=== PATIENT | female | born 1950 | race Caucasian/White ===

== ENCOUNTER → 2019-08-05 11:08 | Outpatient (BNVA) | payer MEDICARE, SELFPAY | PROVIDERS: Family Provider Internal Medicine; PCP Internal Medicine; Referring Provider Family Medicine; Visit Provider Nurse Practitioner Family | DX: N39.0 Urinary tract infection, site not specified (principal); R31.29 Other microscopic hematuria | CPT/HCPCS: 81003 ==

== ENCOUNTER 2019-08-06 12:03 | Emergency (ER) | payer MEDICARE, SELFPAY ==
[2019-08-06 12:47] VITALS: BP 121/76; PULSE 85; RESP 17; TEMP 36.8; O2SAT 99; BMI 18.0
[2019-08-06 14:07] LABS: Hematocrit 42.2 % (37.0-47.0); Hemoglobin 13.4 g/dL (11.5-15.3); Mean Corpuscular HGB Conc 31.8 g/dL (30.0-36.0); Mean Corpuscular Hemoglobin 29.8 pg (28.0-34.0); Mean Platelet Volume 9.8 fL (7.4-10.4); Platelet Count 223 10^3/cmm (130-400); Red Blood Count 4.49 10^6/uL (4.1-5.3); White Blood Count 6.8 10^3/uL (4.0-10.0)
[2019-08-06 14:24] LABS: Platelet Estimate Normal (Normal); Total Cells Counted 100 (0-100)
[2019-08-06 14:27] LABS: Absolute Segmented Neutrophil 4.1 10/cmm (1.6-7.1); Band Neutrophils Absolute 0.1 10^3/cmm (0.0-1.2); Lymphocytes 34 %; Monocytes Absolute 0.3 10^3/cmm (0.1-0.6); Segmented Neutrophils 61 %
[2019-08-06 14:33] LABS: Anion Gap 16.9 (5-19); Blood Urea Nitrogen 16 mg/dL (8-23); Calcium 9.5 mg/dL (8.5-10.5); Carbon Dioxide 26 mmol/L (22-29); Chloride 103 mmol/L (98-107); Glomerular Filtration Rate 71.8 mL/min (90-130); Glucose 98 mg/dL (65-115); Osmolality Calculated 290 mOsm/kg (285-295); Potassium 3.9 mmol/L (3.5-5.1); Sodium 142 mmol/L (136-145)
[2019-08-06 15:07] LABS: Add Urine Microscopic? YES; Bilirubin Urine Neg (NEGATIVE); Blood Urine Trace (Negative); Glucose Urine UA Norm (Normal); Ketones Urine Negative (Negative); Leukocyte Esterase Urine Negative (Negative); Nitrate Urine Negative (Negative); Protein Urine Neg (Negative); Urine Appearance Clear (CLEAR); Urine Color Yellow (Yellow); Urobilinogen Urine Norm (Negative); pH Urine 5 (5-7)
[2019-08-06 15:17] VITALS: BP 125/75; PULSE 75; RESP 16; O2SAT 98
--- NOTE | 2019-08-06 15:49 | PC.NURSE ---
Patient states that she was seen yesterday for same symptoms at urgent care, patient states that she called her family doctor today and they advised her to come here for imaging for possible kidney stone.
--- NOTE | 2019-08-06 16:10 | ED_ITS ---
Entered by Irma Estrada, acting as scribe for Tish Murphy MD Aug 06, 2019 12:03 HPI - Back Pain/Injury General: Chief Complaint: Back Pain/Injury Stated Complaint: poss kidney stones Time Seen by Provider: 08/06/19 16:08 Source: patient and RN notes reviewed Mode of arrival: ambulatory Limitations: no limitations History of Present Illness: HPI Narrative: 68 yo female presents to ED with complaints of back pain that began about a week ago. She believes she has a kidney stone since she was seen at the urgent care yesterday and told she had blood in her urine and likely had a kidney stone. She has been nauseated. She states she has had no blood in her urine. The patient went to [facility] yesterday, thinking she had a bladder infection. She has bilateral flank pain, more pain on the L side vs the R side. The patient states she has not injured herself. She has taken no antibiotics. She has had 4 surgeries on her back in the past - the last was approximately 14 years ago. MD elicited complaint: back pain Pertinent past history: prior back pain and back surgery (4 times, most recent i n 2005) Onset (ago): week(s) (1) Timing: progressively worsening Severity: moderate Similar Symptoms Previously: Yes Quality: sharp and stabbing Location: left flank and right flank Radiation: none Exacerbating factors: movement Relieving factors: immobilization Context: other (no injury) Associated symptoms: Reports nausea; Deny chills or fever(s) Treatments prior to arrival: other (none) Work related injury: No Review of Systems General: Reports: 10 or more systems reviewed and unremarkable except in HPI and below Const: Denies: fever or chills Eyes: Denies: change in vision ENMT: Denies: throat pain Card: Denies: chest pain Resp: Denies: shortness of breath GI: Reports: nausea : Denies: difficulty urinating Musc: Denies: muscle weakness Skin/Breast: Denies: rash Neuro: Denies: headache Psych: Denies: hopelessness or suicidal ideation Endo: Denies: excessive urination Omar/Lymph: Denies: easy bruising or easy bleeding All/Imm: Denies: hives PFSH ED PFSH: Social History Smoking and tobacco status: former smoker Physical Exam Const: COMMON NORMALS: no apparent distress, oriented x3, alert and well nourished HENMT: COMMON NORMALS: normocephalic and external nose normal HEAD & SCALP: normocephalic NOSE: external nose normal MOUTH: no trismus Eye: COMMON NORMALS: EOMs intact bilaterally and conjunctivae normal CONJUNCTIVA: Yes conjunctivae normal Neck/C-Spine: COMMON NORMALS: full ROM and supple CERVICAL SPINE: Yes cervical ROM normal Resp: COMMON NORMALS: normal respiratory effort, no retractions, no use of accessory muscles and clear to auscultation bilaterally EFFORT & INSPECTION: Yes able to speak in complete sentences AUSCULTATION: clear to auscultation bilaterally Cardio: COMMON NORMALS: regular rate and regular rhythm RATE: regular rate RHYTHM: regular rhythm GI: COMMON NORMALS: normal to inspection, nondistended, normoactive bowel sounds, soft to palpation, non-tender and no masses INSPECTION: Yes normal to inspection AUSCULTATION: Yes normoactive bowel sounds PALPATION: Yes soft, No guarding and No rigid Back/Pelvis: OTHER: Normal range of motion. No bony tenderness. Negative straight leg raise. Normal muscle strength lower extremities Extremity: GENERAL: Yes normal exam except as noted Neuro: COMMON NORMALS: oriented x3 and CN's II-XII intact bilaterally SENSORIUM/ORIENTATION: Yes alert SPEECH: speech normal Psych: COMMON NORMALS: mental status grossly normal Skin: COMMON NORMALS: no rashes or lesions noted GENERAL SKIN EXAM: no rashes or lesions noted Course Vital Signs: Vital signs: Vital Signs Temperature 98.3 F 08/06/19 12:47 Pulse Rate 75 08/06/19 15:17 Respiratory Rate 16 08/06/19 15:17 Blood Pressure 125/75 08/06/19 15:17 Pulse Oximetry 98 08/06/19 15:17 MDM - Back Pain/Injury MDM Narrative: Medical decision making narrative: Updated patient on her test results and told her about her mild colitis. We will start her on antibiotics. She is in no distress and is thankful that we found the reason for her not feeling well. Encouraged to return to the ER if worse. Lab Data: Attestation: I reviewed the patient's lab results. Labs: Lab Results 08/06/19 08/06/19 08/06/19 Range/Units 13:52 13:52 14:25 WBC 6.8 (4.0-10.0) 10^3/ uL RBC 4.49 (4.1-5.3) 10^6/u L Hgb 13.4 (11.5-15.3) g/dL Hct 42.2 (37.0-47.0) % MCV 94.0 (81-99) fL MCH 29.8 (28.0-34.0) pg MCHC 31.8 (30.0-36.0) g/dL RDW 13.0 (12.1-15.1) % Plt Count 223 (130-400) 10^3/c mm MPV 9.8 (7.4-10.4) fL Total Counted 100 (0-100) Segmented Neutroph ils 61 % Band Neutrophils 1.0 % Lymphocytes (Manua l) 34 % Monocytes (Manual) 4.0 % Absolute Monocytes 0.3 (0.1-0.6) 10^3/c mm Platelet Estimate Normal (Normal) Sodium 142 (136-145) mmol/L Potassium 3.9 (3.5-5.1) mmol/L Chloride 103 (98-107) mmol/L Carbon Dioxide 26 (22-29) mmol/L Anion Gap 16.9 (5-19) BUN 16 (8-23) mg/dL Creatinine 0.8 (0.5-0.9) mg/dL GFR Calculation 71.8 L (90-130) mL/min Glucose 98 (65-115) mg/dL Calculated Osmolal ity 290 (285-295) mOsm/k g Calcium 9.5 (8.5-10.5) mg/dL Urine Color Yellow (Yellow) Urine Appearance Clear (CLEAR) Urine pH 5 (5-7) Ur Specific Gravit y 1.020 (1.005-1.030) Urine Protein Neg (Negative) Urine Glucose (UA) Norm (Normal) Urine Ketones Negative (Negative) Urine Blood Trace H (Negative) Urine Nitrate Negative (Negative) Urine Bilirubin Neg (NEGATIVE) Urine Urobilinogen Norm (Negative) mg/dL Ur Leukocyte May ase Negative (Negative) Urine RBC 5-10 H (0-2) /hpf Urine WBC None (0-5) /hpf Ur Squamous Epith Cells None (0-5) Urine Bacteria None (NONE) Imaging Data^: CT Abd/Pel: Radiologist's impression: [address] [address] [address] Scan Report Signed Patient: Alexandre Arriaza #: [id number] : 3Acct#:[id number] Age/Sex: 68 / FADM Date: 08/06/19 Loc: ERRoom/Bed: Attending Dr: Ordering Provider/Ordering MD: Tish Murphy MD Date of Service: 08/06/19 Procedure(s): CT kidney stone 12131 Accession Number(s): [id number] Report Number: [id number] PROCEDURE INFORMATION: Exam: CT Abdomen And Pelvis Without Contrast Exam date and time: 08/06/2019 4:49 PM Age: 68 years old Clinical indication: Abdominal pain; Prior surgery; Surgery date: 6+ months; Surgery type: Spine/4 ectopic pregnancies; Patient HX: Left flank pain x1 wk, no known recent trauma; Additional info: L flank pain TECHNIQUE: Imaging protocol: Computed tomography of the abdomen and pelvis without contrast. Total DLP: 548.84 mGy-cm Radiation optimization: All CT scans at this facility use at least one of these dose optimization techniques: automated exposure control; mA and/or kV adjustment per patient size (includes targeted exams where dose is matched to clinical indication); or iterative reconstruction. COMPARISON: No relevant prior studies available. FINDINGS: Liver: There is a 1.8 cm indeterminate hypodensity in the liver just below the diaphragm image 18. The Hounsfield unit measurement within this abnormality is 49 and this is not a fluid density cyst on this study. There is a 1 cm fluid density cyst in the caudate lobe of the liver image 41. No duct dilatation. Gallbladder and bile ducts: Normal. No calcified stones. No ductal dilation. Pancreas: Normal. No ductal dilation. Spleen: Normal. No splenomegaly. Adrenals: Normal. No mass. Kidneys and ureters: There is no evidence of hydronephrosis. There is no evidence of renal calcifications. There is a 3.5 cm simple cyst in the left kidney. Stomach and bowel: Moderate diverticulosis is present in the distal colon. There is no evidence of colitis/diverticulitis. There is no evidence of intestinal perforation or obstruction. There is mild wall thickening in the descending and sigmoid colon compatible with mild colitis. Appendix: No evidence of appendicitis. Intraperitoneal space: Unremarkable. No free air. No significant fluid collection. Vasculature: There are numerous benign phleboliths in the pelvis. Lymph nodes: Unremarkable.No enlarged lymph nodes. Bladder: There is nonspecific bladder wall thickening. This may be related to incomplete distention. Reproductive: Unremarkable as visualized. Bones/joints: There is dextroscoliosis. Old right pubic rami fracture deformities are noted. Old anterior wedging fracture deformity of L1 is noted with prominent bony sclerosis. There are moderate to severe degenerative changes in the spine. No acute bony abnormality. Soft tissues: There is a fat-containing umbilical hernia. CT/CT kidney stone 53353 IMPRESSION: 1. There is a 3.5 cm simple cyst in the left kidney. No follow-up is necessary. 2. There is a 1.8 cm indeterminate hypodensity in the liver just below the diaphragm image 18. Recommend further evaluation with liver MRI. 3. There is mild wall thickening in the descending and sigmoid colon compatible with mild colitis. 4. No obstructing calculi or hydronephrosis. COMMENTS: Consistent with the [employer]'s Incidental Findings Committee white paper (J Am Casandra Radiol 2018): Any incidental cystic renal lesion classified in this report as too small to characterize or simple appearing is likely a benign cyst. No follow-up imaging is recommended for these lesions per consensus recommendations based on imaging criteria. Radiation Dose CTDIVOL = (mGy): DLP = 548.84 (mGy-cm) Dictated By:Sherry Garza Signed By:Kymberly Garza Date/Time:08/06/19 3691 DD/ Discharge Plan Discharge Patient Disposition: Home, Self-Care Clinical Impression: Colitis Back pain Qualifiers: Back pain location: low back pain Chronicity: acute Back pain laterality: left Sciatica presence: without sciatica Qualified Code(s): M54.5 - Low back pain Condition: Stable Prescriptions: New Cipro 500 mg tablet 500 mg PO BID Qty: 10 RF: 0 Flagyl 500 mg tablet 500 mg PO BID Qty: 10 RF: 0 Zofran 4 mg tablet 4 mg PO Q8H 3 Days Qty: 9 RF: 0 No Action gabapentin 900 mg PO QID RF: 0 tizanidine 6 mg PO QID RF: 0 Multiple Vitamins Tablet 1 tab PO DAILY RF: 0 Tylenol 325 mg Tablet 325 mg PO QID PRN (Reason: Pain) RF: 0 chromium-brindal alejandre 200-500 mcg-mg Tablet 1 tab PO TID RF: 0 vitamin B wiwbem-J-GO-zinc cit 0.8-15 mg Tablet 1 tab PO DAILY RF: 0 Referrals: Trisha Che FNP [Primary Care Provider] - Patient Instructions: Infectious Colitis (ED) Activity Restrictions/Additional Instructions: Take your antibiotics as prescribed. Return to the ER if you feel that you are worse in any way or have any emergent symptoms you think need to be evaluated we are happy to see you. Coding Level of Care Code ED Pizza Maker for Chg Fwd Exam Comprehensive The documentation recorded by the Natalie foote Valerie R, accurately reflects the service I personally performed and the decisions made by me, Tish Murphy MD Aug 06, 2019 12:03
--- NOTE | 2019-08-06 16:43 | CTR_ITS ---
PROCEDURE INFORMATION: Exam: CT Abdomen And Pelvis Without Contrast Exam date and time: 08/06/2019 4:49 PM Age: 68 years old Clinical indication: Abdominal pain; Prior surgery; Surgery date: 6+ months; Surgery type: Spine/4 ectopic pregnancies; Patient HX: Left flank pain x1 wk, no known recent trauma; Additional info: L flank pain TECHNIQUE: Imaging protocol: Computed tomography of the abdomen and pelvis without contrast. Total DLP: 548.84 mGy-cm Radiation optimization: All CT scans at this facility use at least one of these dose optimization techniques: automated exposure control; mA and/or kV adjustment per patient size (includes targeted exams where dose is matched to clinical indication); or iterative reconstruction. COMPARISON: No relevant prior studies available. FINDINGS: Liver: There is a 1.8 cm indeterminate hypodensity in the liver just below the diaphragm image 18. The Hounsfield unit measurement within this abnormality is 49 and this is not a fluid density cyst on this study. There is a 1 cm fluid density cyst in the caudate lobe of the liver image 41. No duct dilatation. Gallbladder and bile ducts: Normal. No calcified stones. No ductal dilation. Pancreas: Normal. No ductal dilation. Spleen: Normal. No splenomegaly. Adrenals: Normal. No mass. Kidneys and ureters: There is no evidence of hydronephrosis. There is no evidence of renal calcifications. There is a 3.5 cm simple cyst in the left kidney. Stomach and bowel: Moderate diverticulosis is present in the distal colon. There is no evidence of colitis/diverticulitis. There is no evidence of intestinal perforation or obstruction. There is mild wall thickening in the descending and sigmoid colon compatible with mild colitis. Appendix: No evidence of appendicitis. Intraperitoneal space: Unremarkable. No free air. No significant fluid collection. Vasculature: There are numerous benign phleboliths in the pelvis. Lymph nodes: Unremarkable.No enlarged lymph nodes. Bladder: There is nonspecific bladder wall thickening. This may be related to incomplete distention. Reproductive: Unremarkable as visualized. Bones/joints: There is dextroscoliosis. Old right pubic rami fracture deformities are noted. Old anterior wedging fracture deformity of L1 is noted with prominent bony sclerosis. There are moderate to severe degenerative changes in the spine. No acute bony abnormality. Soft tissues: There is a fat-containing umbilical hernia. CT/CT kidney stone [id number] IMPRESSION: 1. There is a 3.5 cm simple cyst in the left kidney. No follow-up is necessary. 2. There is a 1.8 cm indeterminate hypodensity in the liver just below the diaphragm image 18. Recommend further evaluation with liver MRI. 3. There is mild wall thickening in the descending and sigmoid colon compatible with mild colitis. 4. No obstructing calculi or hydronephrosis. COMMENTS: Consistent with the [employer]'s Incidental Findings Committee white paper (J Am Casandra Radiol 2018): Any incidental cystic renal lesion classified in this report as too small to characterize or simple appearing is likely a benign cyst. No follow-up imaging is recommended for these lesions per consensus recommendations based on imaging criteria. Radiation Dose CTDIVOL = (mGy): DLP = 548.84 (mGy-cm)
[2019-08-06] MEDS: ondansetron 4 MG Tablet PO (18:01)
[2019-08-06 18:14] VITALS: BP 123/71; PULSE 76; RESP 18; O2SAT 98
== END 2019-08-06 18:16 | disposition home or self-care (01) ==
PROVIDERS: Emergency Provider Emergency Medicine; PCP Nurse Practitioner
DX: K52.9 Noninfective gastroenteritis and colitis, unspecified (principal); Z87.891 Personal history of nicotine dependence
CPT/HCPCS: 36415; 74176; 80048; 81001; 85007; 85027; 99281; 99283; Q0162

== ENCOUNTER → 2020-03-05 18:23 | Outpatient (BNVA) | payer OTHER, SELFPAY | PROVIDERS: Family Provider Internal Medicine; PCP Nurse Practitioner; Visit Provider Nurse Practitioner Family | DX: Z20.828 Contact with and (suspected) exposure to other viral communicable diseases (principal) | CPT/HCPCS: 87635 ==

== ENCOUNTER 2020-04-28 08:41 | Outpatient (CLI) | payer MEDICARE, SELFPAY ==
--- NOTE | 2020-04-28 08:55 | CT_ITS ---
WS: [id number] CT NECK TECHNIQUE: Contrast-enhanced CT of the neck with coronal and sagittal reformatted images. CLINICAL INFORMATION: LOCALIZED SWELLING MASS/LUMP COMPARISON: None. DLP: 1385.[address] scans at [facility] use at least one of these dose optimization techniques: automat ed exposure control; mA and/or kV adjustment per patient size (includes targeted exams where dose is matched to clinical indication); or iterative reconstruction. FINDINGS: Marker over the left neck in the area of palpable concern. Parotid glands are normal in appearance. N ormal submandibular glands. Palpable marker overlying the left submandibular gland. No underlying pat hologic mass or lesion. No underlying lymphadenopathy. Normal subcutaneous soft tissues in this locat ion. Lung apices appear normal. Normal parapharyngeal fat. Tongue base is normal in appearance. No cervica l lymphadenopathy. Mastoid air cells are well aerated. Paranasal sinuses are well aerated. Lung apice s are well aerated. Surgical clips right lower neck. Moderate to advanced spondylitic changes cervical spine with disc osteophyte complexes worse at C4-C5 C5-C6 and C6-C7. Paranasal sinuses and mastoid air cells are well aerated. Partially visualized intr acranial contents are normal. No evidence of supraglottic or glottic mass. Normal vallecula and pirif orm sinuses. Subglottic airway is patent. Incidental aberrant right subclavian artery. CT/CT neck w con* [id number] IMPRESSION: 1. No evidence of supraglottic or glottic mass. 2. Palpable marker overlying the left upper neck. No underlying mass or lesion . Normal underlying submandibular gland. 3. Salivary glands are normal in appearance. 4. No cervical lymphadenopathy. 5. Thyroid gland is normal. 6. Paranasal sinuses and mastoid air cells are well aerated. 7. Incidental aberrant right subclavian artery.
[2020-04-28 09:18] LABS: Blood Urea Nitrogen 10 mg/dL (8-23)
[2020-04-28 09:19] LABS: Glomerular Filtration Rate 71.5 mL/min (90-130)
[2020-04-28] MEDS: iohexol 300 mg/mL 100 mL Btl IV (09:31)
== END 2020-04-28 08:42 | disposition home or self-care (01) ==
PROVIDERS: PCP Internal Medicine; Visit Provider Specialist
DX: R22.1 Localized swelling, mass and lump, neck (principal); Q27.8 Other specified congenital malformations of peripheral vascular system
CPT/HCPCS: 70491; 82565; 84520; Q9967

== ENCOUNTER → 2020-10-07 12:59 | Outpatient (BNVA) | payer MEDICARE, SELFPAY | PROVIDERS: PCP Internal Medicine; Visit Provider Nurse Practitioner Family | DX: N39.0 Urinary tract infection, site not specified (principal) | CPT/HCPCS: 81000 ==

== ENCOUNTER → 2020-12-21 09:32 | Outpatient (BNVA) | payer MEDICARE, SELFPAY | PROVIDERS: PCP Internal Medicine; Visit Provider Internal Medicine | DX: R30.0 Dysuria (principal); M54.9 Dorsalgia, unspecified | CPT/HCPCS: 81003 ==

== ENCOUNTER → 2021-12-14 00:01 | Outpatient (BNVA) | payer MEDICARE, SELFPAY | PROVIDERS: PCP Internal Medicine; Visit Provider Internal Medicine | DX: Z20.822 Contact with and (suspected) exposure to COVID-19 (principal) | CPT/HCPCS: 87635 ==

== ENCOUNTER 2021-12-18 08:38 | Emergency (ER) | payer MEDICARE, SELFPAY ==
[2021-12-18 09:43] VITALS: BP 201/104; PULSE 107; RESP 18; TEMP 37.4; O2SAT 95; BMI 18.3
--- NOTE | 2021-12-18 09:47 | XRR_ITS ---
PROCEDURE INFORMATION: Exam: XR Chest Exam date and time: 12/18/2021 11:06 AM Age: 71 years old Clinical indication: Cough TECHNIQUE: Imaging protocol: Radiologic exam of the chest. Views: 1 view. COMPARISON: CR Chest 1 [place] [id number] 11/11/2018 11:09 AM FINDINGS: Tubes, catheters and devices: Surgical clips overlie the superior right hemithorax. Lungs: COPD morphology of the chest. No large focal consolidation. Pleural spaces: Unremarkable. No pleural effusion. No pneumothorax. Heart/Mediastinum: Unremarkable. No cardiomegaly. Vasculature: There is calcified plaque in the aortic knob. Bones/joints: There are thoracolumbar scoliotic curvatures.There are degenerative changes in the thoracic spine and across the acromioclavicular joints. XR/XR chest 1V portable [id number] IMPRESSION: COPD morphology of the chest.
--- NOTE | 2021-12-18 09:56 | ED_ITS ---
HPI - URI/Sore Throat General: Chief Complaint: Upper Respiratory Infection Stated Complaint: cough, runny nose Time Seen by Provider: 12/18/21 08:40 History of Present Illness: Ms. Arriaza is a 71-year-old lady with remote history of tobaccoism who presents to the emergency department due to cough and shortness of breath. She reports symptom onset approximately a week and a half ago. Initially it was mainly congestion and upper respiratory symptoms for the has now become more in her chest. She has mildly productive cough and moderate shortness of breath with exertion. Overall course of symptoms has worsened. No other specific changes in health, exacerbating, or alleviating factors identified. Onset (ago): day(s) Consistency: progressively worsening Severity: moderate Description of mucous: green Able to tolerate fluids by mouth: Yes Exacerbating factors: exertion and deep breaths Relieving factors: nothing Associated symptoms: Reports cough, myalgias and short of breath Review of Systems General: Reports: 10 or more systems reviewed and unremarkable except in HPI and below PFSH ED PFSH: Medical History Allergic rhinitis due to allergen Congestion of nasal sinus Post-traumatic stress disorder, chronic Social History Smoking and tobacco status: former smoker Second hand smoke exposure: Yes Smoking risk assessment/counseling performed?: No Alcohol intake: never Desire information about alcohol rehabilitation?: No Counseling given: No Desire information about substance/drug rehabilitation?: No Counseling given: No Adopted: No Caregiver/support person: No Lives independently: Yes Household members: spouse Housing: House Marital status: Number of children: 1 Number of grandchildren: 7 Highest education level completed: Master's Degree service: No Current occupational status: retired Current occupational exposures/hazards: No Pets and animals: Yes History of recent travel: No Current gender identity: Female Special angi needs: No Agree to transfusion: Yes Female Reproductive History: Date of last menstrual period: 06/11/97 Physical Exam Const: COMMON NORMALS: alert GENERAL APPEARANCE: cooperative, well develo ped and ill appearing (mildly) HENMT: COMMON NORMALS: normocephalic and atraumatic HEAD & SCALP: normocephalic and atraumatic THROAT: posterior oropharynx normal Eye: COMMON NORMALS: conjunctivae normal CONJUNCTIVA: Yes conjunctivae normal SCLERA: sclerae normal Neck/C-Spine: COMMON NORMALS: supple GENERAL: Yes trachea midline Resp: EFFORT & INSPECTION: Yes able to speak in complete sentences AUSCULTATION: rhonchi lower bilaterally Cardio: COMMON NORMALS: regular rhythm RATE: tachycardic RHYTHM: regular rhythm GI: COMMON NORMALS: Soft to palpation PALPATION: Yes Soft to palpation and No Tenderness to palpation present (GI) PERCUSSION: normal to percussion Extremity: GENERAL: Yes normal exam except as noted and No edema Neuro: COMMON NORMALS: moves all extremities SENSORIUM/ORIENTATION: Yes alert and No Orientation impaired Psych: COMMON NORMALS: mental status grossly normal and Normal thought process present THOUGHT PROCESS: Normal thought process present Course ED course: - Patient was seen and evaluated by me at bedside - Patient placed on cardiac monitors, IV access obtained - Initial evaluation notable for exam as above - Labs and xrays personally interpreted by me. EKG notable for sinus rhythm, no STEMI. -Fluids given - Labs notable for no leukocytosis, normal hemoglobin. Metabolic panel without significant derangement. Flu negative, patient tested for COVID and was negative on 12/14. - Imaging notable for likely COPD without lobar consolidation or pneumothorax - Upon serial reexamination after treatment the patient was mildly improved - Based on patient history, evaluation, and testing as interpreted the most likely cause of the patient's condition is pneumonia versus COPD exacerbation - The results of ED evaluation were discussed with the patient including prescriptions and/or symptomatic cares (if applicable) including appropriate and responsible use, followup plan, and return precautions. The patient verbalized understanding and felt safe for discharge. - Patient discharged in satisfactory condition. Note: Click bubbles or prepopulated suero in note writing are used for assistance with data collection and billing and are inherently more limited than narrative and other text portions of this note. Please use narrative for additional clinical history and defer to narrative/free test for any case of contradictory information. If information appears in only free text or click bubble it should be considered present or absent as reported. Please contact note mortgage loan underwriter for clarifications of clinical information or contradictory information. MDM is a brief summary, contradictory or erroneous seeming information should be clarified and full note should be reviewed. Vital Signs: Vital signs: Vital Signs Temperature 99.3 F 12/18/21 09:43 Pulse Rate 80 12/18/21 12:41 Respiratory Rate 14 07/10/22 12:41 Blood Pressure 164/104 12/18/21 12:41 Pulse Oximetry 97 12/18/21 12:41 MDM - URI/Sore Throat Medical Decision Making 71-year-old lady presenting with worsening respiratory symptoms. Nontoxic on appearance. Likely history of COPD. Satisfactory for outpatient management of pneumonia. Medical Records I reviewed the patient's medical records. Lab Data I reviewed the patient's lab results. : 12/18/21 10:30 12/18/21 10:30 Radiology Impressions Chest X-Ray 12/18/21 09:47 IMPRESSION: COPD morphology of the chest. Laboratory Results WBC 8.5 10^3/uL (4.0-10.0) 12/18/21 10:30 RBC 4.72 10^6/uL (4.1-5.3) 12/18/21 10:30 Hgb 14.5 g/dL (11.5-15.3) 12/18/21 10:30 Hct 44.3 % (37.0-47.0) 12/18/21 10:30 MCV 93.9 fl (81-99) 12/18/21 10:30 MCH 30.7 pg (28.0-34.0) 12/18/21 10:30 MCHC 32.7 g/dL (30.0-36.0) 12/18/21 10:30 RDW 12.4 % (12.1-15.1) 12/18/21 10:30 Plt Count 209 10^3/cmm (130-400) 12/18/21 10:30 MPV 9.4 fL (7.4-10.4) 12/18/21 10:30 Neut % (Auto) 68.7 % 12/18/21 10:30 Lymph % (Auto) 24.8 % 12/18/21 10:30 [place] % (Auto) 4.6 % 12/18/21 10:30 Eos % (Auto) 1.1 % 12/18/21 10:30 Baso % (Auto) 0.6 % 12/18/21 10:30 Neut # (Auto) 5.86 10^3/uL (1.8-7.7) 12/18/21 10:30 Lymph # (Auto) 2.1 10^3/uL (0.8-4.8) 12/18/21 10:30 [place] # (Auto) 0.4 10^3/uL (0.2-0.9) 12/18/21 10:30 Eos # (Auto) 0.1 10^3/uL (0.0-0.8) 12/18/21 10:30 Baso # (Auto) 0.1 10^3/uL (0.0-0.1) 12/18/21 10:30 Nucleated RBC % (auto) 0 % 12/18/21 10:30 Nucleated RBCs # 0.0 /100WBC 12/18/21 10:30 Sodium 139 mmol/L (136-145) 12/18/21 10:30 Potassium 3.9 mmol/L (3.5-5.1) 12/18/21 10:30 Chloride 104 mmol/L (98-107) 12/18/21 10:30 Carbon Dioxide 22 mmol/L (22-29) 12/18/21 10:30 Anion Gap 16.9 (5-19) 12/18/21 10:30 BUN 11 mg/dL (8-23) 12/18/21 10:30 Creatinine 0.8 mg/dL (0.5-0.9) 12/18/21 10:30 GFR Calculation 71.1 mL/min (90-130) L 12/18/21 10:30 Glucose 102 mg/dL (65-115) 12/18/21 10:30 Calculated Osmolality 288 mOsm/kg (285-295) 12/18/21 10:30 Calcium 8.9 mg/dL (8.5-10.5) 12/18/21 10:30 NT-Pro-B Natriuret Pep 257 pg/mL (0-125) H 12/18/21 10:30 Influenza Type A Ag Negative (Negative) 12/18/21 10:30 Influenza Type B Ag Negative (Negative) 12/18/21 10:30 Discharge Plan Discharge Patient Disposition: Home Clinical Impression: Pneumonia Condition: Stable Prescriptions: New amoxicillin-pot clavulanate 875-125 mg tablet 1 tab PO BID Qty: 20 0RF prednisone 5 mg tablets,dose pack See Rx Instructions .ROUTE .COMPLEX Qty: 21 0RF Rx Instructions: prednisone 5 mg: take 8 tablets (40 mg) on Day 1; 7 tablets (35 mg) on Day 2; then decrease by 1 tablet every day until finished No Action cetirizine [Zyrtec] 10 mg tablet 10 mg PO DAILY PRN (Reason: allergy symptoms) Qty: 30 1RF fluticasone propionate 50 mcg/actuation spray,suspension 1 spray intranasal BID PRN (Reason: nasal congestion) Qty: 16 1RF Rx Instructions: administer into each nostril guaifenesin 600 mg tablet extended release 12hr 600 mg PO BID PRN (Reason: congestion) Qty: 20 0RF gabapentin 600 mg tablet 900 mg PO QID Qty: 180 5RF tizanidine 4 mg capsule 4 mg PO QID PRN (Reason: muscle spasticity) Qty: 30 3RF multivitamin [Multiple Vitamins] Tablet 1 tab PO DAILY 0RF acetaminophen [Tylenol] 325 mg Tablet 325 mg PO QID PRN (Reason: Pain) 0RF chromium-brindal alejandre 200-500 mcg-mg Tablet 1 tab PO TID 0RF vitamin B jlnjzd-Z-VR-zinc cit 0.8-15 mg Tablet 1 tab PO DAILY 0RF Vitamin C 500 mg Tablet 500 mg PO DAILY 0RF Robitussin Cough-Chest Dallin DM 5-100 mg/5 mL Liquid 10 ml PO Q4H PRN (Reason: Congestion) 0RF potassium gluconate 500 mg (83 mg) Tablet 500 mg PO DAILY 0RF Discharge Orders: Discharge ED (Routine); Ordered 12/18/21 Ordered By: Walter Clark Referrals: Dean Toribio MD [Primary Care Provider] - Discharge Diet: Usual diet Discharge Activity: Increase activity as tolerated Patient Instructions: Bacterial Pneumonia (ED) Activity Restrictions/Additional Instructions: Thank you for visiting the emergency department. You were seen evaluated for respiratory symptoms for the most likely cause of your symptoms is pneumonia. This will be treated with antibiotics and steroids. Please follow-up with your primary care provider. Please return to the emergency department for worsening symptoms or anything else that you are concerned about a feel needs emergency department evaluation. Coding Level of Care Code ED [facility] for Anais Bonilla
--- NOTE | 2021-12-18 10:09 | ECG_ITS ---
[facility] Test Date: 2021-12-18 Pat Name: Perico Arriaza Department: Room: Gender: Female Tie Maker: : 1950 Requested By: Walter Clark Order Number: [id number] Cuca MD: Anselmo Nelson M.D. Measurements Intervals [place] Rate: 74 P: 62 MA: 143 QRS: 22 QRSD: 81 T: 47 QT: 396 QTc: 440 Interpretive Statements SINUS RHYTHM Compared to ECG 11/11/2018 10:29:08 Sinus tachycardia no longer present T-wave abnormality no longer present Electronically Signed On 12-18-2021 23:42:52 CDT by Anselmo Nelson M.D. [id number]
[2021-12-18 10:37] LABS: Basophils # 0.1 10^3/uL (0.0-0.1); Basophils % 0.6 %; Eosinophils # 0.1 10^3/uL (0.0-0.8); Eosinophils % 1.1 %; Hematocrit 44.3 % (37.0-47.0); Hemoglobin 14.5 g/dL (11.5-15.3); Lymphocytes # 2.1 10^3/uL (0.8-4.8); Lymphocytes % 24.8 %; Mean Corpuscular HGB Conc 32.7 g/dL (30.0-36.0); Mean Corpuscular Hemoglobin 30.7 pg (28.0-34.0); Mean Corpuscular Volume 93.9 fl (81-99); Mean Platelet Volume 9.4 fL (7.4-10.4); Monocytes # 0.4 10^3/uL (0.2-0.9); Monocytes % 4.6 %; Neutrophils # 5.86 10^3/uL (1.8-7.7); Neutrophils % 68.7 %; Nucleated Red Blood Cells % 0 %; Platelet Count 209 10^3/cmm (130-400); Red Blood Count 4.72 10^6/uL (4.1-5.3); Red Cell Distribution Width 12.4 % (12.1-15.1); White Blood Count 8.5 10^3/uL (4.0-10.0)
[2021-12-18] MEDS: sodium chloride 0.9% 1,000 ML 999 ML IV (10:45)
[2021-12-18 10:47] VITALS: BP 166/99; PULSE 80; RESP 14; O2SAT 96
[2021-12-18 11:35] LABS: Anion Gap 16.9 (5-19); Blood Urea Nitrogen 11 mg/dL (8-23); Calcium 8.9 mg/dL (8.5-10.5); Carbon Dioxide 22 mmol/L (22-29); Chloride 104 mmol/L (98-107); Glomerular Filtration Rate 71.1 mL/min (90-130); Glucose 102 mg/dL (65-115); NT Pro B Type Natriuretic Pept 257 pg/mL (0-125); Osmolality Calculated 288 mOsm/kg (285-295); Potassium 3.9 mmol/L (3.5-5.1); Sodium 139 mmol/L (136-145)
[2021-12-18 11:47] VITALS: BP 165/102; PULSE 78; RESP 14; O2SAT 95
[2021-12-18 11:58] LABS: Influenza A by IFA Negative (Negative); Influenza B by IFA Negative (Negative)
[2021-12-18 12:41] VITALS: BP 164/104; PULSE 80; RESP 14; O2SAT 97
== END 2021-12-18 12:46 | disposition home or self-care (01) ==
PROVIDERS: Emergency Provider Emergency Medicine; PCP Internal Medicine
DX: J18.9 Pneumonia, unspecified organism (principal); Z87.891 Personal history of nicotine dependence
CPT/HCPCS: 71045; 80048; 83880; 85025; 87804; 93005; 96360; 96361; 99285; J7030

== ENCOUNTER → 2023-03-27 17:17 | Outpatient (BNVA) | payer MEDICARE, SELFPAY | PROVIDERS: PCP Family Medicine; Visit Provider Emergency Medicine | DX: R39.9 Unspecified symptoms and signs involving the genitourinary system (principal); N10 Acute pyelonephritis | CPT/HCPCS: 81000; 87086 ==

== ENCOUNTER 2023-08-24 12:58 | Outpatient (CLI) | payer MEDICARE, SELFPAY ==
--- NOTE | 2023-08-24 14:15 | US_ITS ---
WS: [id number] ULTRASOUND SOFT TISSUES palpable area posterior RIGHT neck. HISTORY: Right sided nodule of the neck. COMPARISON: None available. TECHNIQUE: 2-D and color Doppler imaging is submitted. Patient directed examination to the palpable area along the posterior RIGHT neck. This corresponds to a small benign-appearing lymph node measuring 1.5 x 1.5 x 0.3 mm. No increased vascularity. No adeno tom. Negative LEFT neck for comparison. IMPRESSION: Palpable area along the RIGHT neck corresponds to a benign lymph node.
== END 2023-08-24 12:59 | disposition home or self-care (01) ==
LOC: RAD 12:58
PROVIDERS: PCP Family Medicine; Visit Provider Family Medicine
DX: R22.1 Localized swelling, mass and lump, neck (principal)
CPT/HCPCS: 76536

== ENCOUNTER → 2023-11-28 09:49 | Outpatient (BNVA) | payer MEDICARE, SELFPAY | PROVIDERS: PCP Family Medicine; Visit Provider Nurse Practitioner Family | DX: R39.9 Unspecified symptoms and signs involving the genitourinary system (principal) | CPT/HCPCS: 81000 ==

== ENCOUNTER 2024-03-26 20:03 | Emergency (ER) | payer MEDICARE, SELFPAY ==
[2024-03-26 20:30] VITALS: BP 126/77; PULSE 97; RESP 16; TEMP 36.7; O2SAT 100; BMI 19.5
--- NOTE | 2024-03-26 21:35 | W.ED.BURNSMK ---
HPI - Burn/Smoke Inhalation General: Chief complaint: Burn/Smoke Inhalation Stated complaint: Rt Hand Burn Time Seen by Provider: 03/26/24 20:34 Source: patient Mode of arrival: ambulatory Limitations: no limitations History of Present Illness: Patient is a 73-year-old female presenting to the emergency department with a burn to right wrist suffered last week while getting something out of the oven. She states that the pain and redness have persisted despite being prescribed antibiotics. She has been applying Neosporin and covering with bandage. States she is concerned of infection. She denies any fever, vomiting, chills, or other symptoms. MD Complaint: burn Onset (ago): week(s) Smoke Inhalation: none Place: home Location - Extremities: Right: forearm Severity: mild Associated symptoms: Deny chest pain, fever(s), headache(s), nausea or vomiting Related Data Previous Rx's Medication Instructions Recorded cyclobenzaprine 10 mg tablet 10 mg PO TID PRN muscle spasm #60 03/28/23 tabs gabapentin 600 mg tablet See Rx Instructions .Route 03/28/23 .COMPLEX #180 tabs hydroxyzine HCl 50 mg tablet See Rx Instructions .Route 03/28/23 .COMPLEX #60 tabs lisinopril 20 mg tablet See Rx Instructions .Route 03/28/23 .COMPLEX #90 tabs cetirizine 10 mg tablet 10 mg PO DAILY PRN allergy 08/21/23 symptoms #90 tabs fluticasone propionate 50 1 spray intranasal BID PRN nasal 08/21/23 mcg/actuation nasal congestion #16 grams spray,suspension lorazepam 0.5 mg tablet 0.5 mg PO DAILY PRN anxiety #30 09/03/23 tabs cephalexin 500 mg capsule 500 mg PO BID #10 caps 03/24/24 fluoxetine 10 mg capsule 10 mg PO DAILY #30 caps 03/24/24 mupirocin 2 % topical ointment 1 applic topical BID #15 grams 03/26/24 Allergies Allergy/AdvReac Type Severity Reaction Status Date / Time pentazocine [From Evette] Allergy ADR-Halluci Verified 03/24/24 17:49 nating debby Allergy ALGY-Difficulty Verified 03/24/24 17:49 Breathing Review of Systems General: Reports: 10 or more systems reviewed and unremarkable except in HPI and below Const: Denies: fever(s) or chills Card: Denies: chest pain Resp: Denies: dyspnea GI: Denies: abdominal pain, nausea, vomiting or diarrhea Musc: Denies: extremity pain or joint pain Skin/Breast: Reports: erythema, skin pain, skin tenderness and non-healing lesions; Denies: rash Neuro: Denies: headache(s) PFS ED PFSH: Medical History Congestion of nasal sinus Allergic rhinitis due to allergen Post-traumatic stress disorder, chronic Social History Smoking and tobacco/nicotine status: current every day tobacco/nicotine user Second hand smoke exposure: Yes Alcohol intake: never Substance/Drug Use: never Adopted: No Caregiver/support person: No Lives independently: Yes Household members: spouse Housing: House Marital status: Number of children: 1 Number of grandchildren: 7 Highest education level completed: Master's Degree service: No Current occupational status: retired Current occupational exposures/hazards: No Pets and animals: Yes Do you think of yourself as: Straight/Heterosexual Current gender identity: Female Special angi needs: No Agree to transfusion: Yes Physical Exam Const: COMMON NORMALS: no acute distress, average body habitus, patient oriented x3, no limitations, healthy appearing, alert and well nourished HENMT: COMMON NORMALS: normocephalic and atraumatic HEAD & SCALP: normocephalic and atraumatic Neck/C-Spine: COMMON NORMALS: full ROM, no lymphadenopathy, supple and no meningeal signs Resp: COMMON NORMALS: normal respiratory effort, No use of accessory muscles and clear to auscultation bilaterally AUSCULTATION: clear to auscultation bilaterally Extremity: COMMON NORMALS: full ROM and capillary refill normal NARRATIVE EXTREMITY EXAM: Good radial pulse. Neuro: COMMON NORMALS: patient oriented x3, moves all extremities, no focal motor deficits and no sensory deficits noted SENSORIUM/ORIENTATION: Yes alert MENINGEAL SIGNS: Yes no meningeal signs Skin: COMMON NORMALS: turgor normal NARRATIVE SKIN EXAM: Erythematous area overlying patient's distal right wrist to the palmar aspect. Central area of new skin forming. Area is exquisitely tender to palpation. Of note, there is a copious amount of Neosporin overlying the burn. GENERAL SKIN EXAM: turgor normal Course Vital Signs: Vital signs: Vital Signs Temperature 98.0 F 03/26/24 20:30 Pulse Rate 97 03/26/24 20:30 Respiratory Rate 16 03/26/24 20:30 Blood Pressure 126/77 03/26/24 20:30 Pulse Oximetry 100 03/26/24 20:30 Oxygen Delivery Me thod Room Air 03/26/24 20:30 MDM - Burn/Smoke Inhalation Medical Decision Making Patient burned herself a week ago, has since taken Keflex and has been applying Neosporin and covering with a bandage. I did notice right away on examination that there was a copious amount of Neosporin also covered by bandage, and the wound did appear macerated. Her concern was an infection, at this time I think this is more of a delayed healing than an infectious process. I informed her to leave the wound open to dry if she is not exposed to sunlight, and for coverage of staph will give her bacitracin. She is also given a steroid shot here in the emergency department, and informed her to leave the wound open after she applies the bacitracin at night. Return precautions given such as if she continues to have redness and pain or other concerning symptoms to return for reevaluation. No need for lab workup or imaging at this time. No radiology studies performed this visit Discharge Plan Discharge Patient Disposition: Home Clinical Impression: Superficial burn Condition: Stable Prescriptions: New mupirocin 2 % ointment 1 applic topical BID Qty: 15 0RF No Action lorazepam 0.5 mg tablet 0.5 mg PO DAILY PRN (Reason: anxiety) Qty: 30 2RF cephalexin 500 mg capsule 500 mg PO BID Qty: 10 0RF fluoxetine 10 mg capsule 10 mg PO DAILY Qty: 30 1RF hydroxyzine HCl 50 mg tablet See Rx Instructions .ROUTE .COMPLEX Qty: 60 5RF Dose Instruction: TAKE ONE-HALF TO 1 TABLET BY MOUTH EVERY 8 HOURS NEEDED FOR ANXIETY Rx Instructions: TAKE ONE-HALF TO 1 TABLET BY MOUTH EVERY 8 HOURS NEEDED FOR ANXIETY cyclobenzaprine 10 mg tablet 10 mg PO TID PRN (Reason: muscle spasm) Qty: 60 5RF gabapentin 600 mg tablet See Rx Instructions .ROUTE .COMPLEX Qty: 180 5RF Dose Instruction: TAKE 1 & 1/2 TABLETS BY MOUTH FOUR TIMES DAILY Rx Instructions: TAKE 1 & 1/2 TABLETS BY MOUTH FOUR TIMES DAILY lisinopril 20 mg tablet See Rx Instructions .ROUTE .COMPLEX Qty: 90 3RF Dose Instruction: TAKE 1 TABLET BY MOUTH EVERY DAY Rx Instructions: TAKE 1 TABLET BY MOUTH EVERY DAY cetirizine 10 mg tablet 10 mg PO DAILY PRN (Reason: allergy symptoms) Qty: 90 1RF fluticasone propionate 50 mcg/actuation spray,suspension 1 spray intranasal BID PRN (Reason: nasal congestion) Qty: 16 5RF Rx Instructions: administer into each nostril Discharge Orders: Discharge ED (Routine); Ordered 03/26/24 Ordered By: Gabriel Muniz Referrals: Juma Trujillo MD [Primary Care Provider] - Patient Instructions: Superficial Burn (ED) Activity Restrictions/Additional Instructions: Apply bacitracin twice a day, leave open to dry after application. Drink plenty of fluids. Allow open to air as much as possible, when you clean he may use soap and water. Tylenol or ibuprofen for pain. You may also apply ice. If you continue to have redness expanding or worsening of pain or swelling, follow-up with your primary care or return for reevaluation. Coding Level of Care Code ED Guest Service Agent for Anais Bonilla
[2024-03-26] MEDS: dexamethasone 10 mg/mL INJ IM (21:50)
[2024-03-26] MEDS: cefTRIAXone 1,000 mg SDV 1000 MG IM (21:50)
[2024-03-26] MEDS: bacitracin ointment Pkt 1 EACH TOPICAL (21:50)
[2024-03-26 22:07] VITALS: BP 125/79; PULSE 92; RESP 16; O2SAT 99
== END 2024-03-26 22:06 | disposition home or self-care (01) ==
PROVIDERS: Emergency Provider Physician Assistant; PCP Family Medicine
DX: T23.071A Burn of unspecified degree of right wrist, initial encounter (principal); Z72.0 Tobacco use; X15.0XXA Contact with hot stove (kitchen), initial encounter
CPT/HCPCS: 96372; 99284; J0696; J1100

== ENCOUNTER 2024-05-29 13:10 | Outpatient (CLI) | payer MEDICARE, SELFPAY ==
--- NOTE | 2024-05-29 13:18 | XRR_ITS ---
PROCEDURE INFORMATION: Exam: XR Cervical Spine Exam date and time: 05/29/2024 1:42 PM Age: 73 years old Clinical indication: Prior surgery; Surgery date: 6+ months; Surgery type: Lumbar; Patient HX: Neck pain and limited rom x 1 day, no specific injury TECHNIQUE: Imaging protocol: Radiologic exam of the cervical spine. Views: 2 or 3 views. COMPARISON: CT cervical spin wo con* [id number] 07/18/2017 3:09 PM FINDINGS: Bones/joints: There is slight anterolisthesis of C2 in relation to C3, C3 in relation to C4, C4 in relation to C5 and C6 in relation to C7. There is disc space narrowing with osteophyte formation most pronounced at C4-C5, C5-C6 and C6-C7 and to a lesser degree C3-C4. There are degenerative changes involving the facets at multiple levels. Soft tissues: Prevertebral soft tissues and lung apices are normal. XR/XR cervical spine 3V* [id number] IMPRESSION: 1. Relatively severe spondylosis.
== END 2024-05-29 13:11 | disposition home or self-care (01) ==
LOC: RAD 13:11
PROVIDERS: PCP Family Medicine; Visit Provider Nurse Practitioner Family
DX: M48.02 Spinal stenosis, cervical region (principal); M25.78 Osteophyte, vertebrae
CPT/HCPCS: 72040

== ENCOUNTER 2024-07-16 11:45 | Emergency (ER) | payer MEDICARE, SELFPAY ==
--- NOTE | 2024-07-16 11:48 | XR_ITS ---
WS: [id number] Portable AP upright chest, 07/16/2024 Clinical Data: sob Comparison: Portable chest, 12/18/2021 Findings: No nodules, masses or effusions are seen. The heart is normal. The pulmonary vascularity is not increased. No pneumonia or pneumothorax is seen. The aortic arch and descending thoracic aorta show tortuosity. The diaphragms are flattened. There are surgical clips in the right supraclavicular and clavicular area is unchanged. 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 XR/XR chest 1V portable [id number] Impression: Hyperinflation and atherosclerosis.
[2024-07-16 11:49] VITALS: BP 131/88; PULSE 101; TEMP 36.6; O2SAT 100; BMI 19.4
--- NOTE | 2024-07-16 11:52 | ECG_ITS ---
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 [id number] [id number]
[2024-07-16 12:18] LABS: Basophils % 0.3 %; Eosinophils % 0.5 %; Hematocrit 42.6 % (36-47); Lymphocytes # 1.2 10^3/uL (0.8-4.8); Lymphocytes % 20.5 %; Mean Corpuscular HGB Conc 32.6 g/dL (30-55); Mean Corpuscular Hemoglobin 30.3 pg (27-33); Mean Corpuscular Volume 92.8 fl (85-98); Mean Platelet Volume 9.3 fL (7.4-10.4); Monocytes # 0.5 10^3/uL (0.2-0.9); Monocytes % 8.4 %; Neutrophils # 4.06 10^3/uL (1.8-7.7); Nucleated Red Blood Cells % 0 %; Platelet Count 199 10^3/cmm (157-399); Red Blood Count 4.59 10^6/uL (3.85-5.65); Red Cell Distribution Width 13.2 % (12.1-15.1); White Blood Count 5.81 10^3/uL (3.29-11.43)
[2024-07-16 12:43] LABS: Alanine Aminotransferase 14 U/L (0-33); Albumin Level 4.6 g/dL (3.5-5.2); Alkaline Phosphatase 55 U/L (35-105); Anion Gap 17.9 (5-19); Aspartate Amino Transferase 20 U/L (0-32); Blood Urea Nitrogen 9 mg/dL (8-23); Calcium 9.1 mg/dL (8.5-10.5); Carbon Dioxide 24 mmol/L (22-29); Chloride 101 mmol/L (98-107); Creatinine Clr Calc Pharmacy 60.5419; Globulin 3.2 g/dL (1.3-4.6); Glucose 122 mg/dL (65-115); NT Pro B Type Natriuretic Pept 123 pg/mL (0-125); Osmolality Calculated 288 mOsm/kg (285-295); Potassium 3.9 mmol/L (3.5-5.1); Sodium 139 mmol/L (136-145); Total Bilirubin 0.2 mg/dL (0.15-1.2); Total Protein 7.8 g/dL (6.6-8.7)
[2024-07-16 13:12] LABS: Covid PCR NEGATIVE (Negative); Influenza A POSITIVE (Negative); Influenza B NEGATIVE (Negative); Respiratory Syncytial Virus Ce NEGATIVE (Negative)
--- NOTE | 2024-07-16 14:05 | ED_ITS ---
HPI - URI/Sore Throat 2 General: Chief Complaint: Upper Respiratory Infection Stated Complaint: SOB Time Seen by Provider: 07/16/24 13:55 Source: patient Mode of arrival: ambulatory Limitations: no limitations History of Present Illness: Patient is a 73-year-old female presents to ED today with complaint of fever, cough, body aches, chills, nasal congestion, fatigue over the past 3 days. She arrives clinically in no acute distress with stable vital signs. MD elicited complaint: fever, cough, nasal congestion and other (body aches, chills) Onset (ago): day(s) Consistency: constant Severity: moderate Description of mucous: clear Able to tolerate fluids by mouth: Yes Exacerbating factors: nothing Relieving factors: other (OTC antipyretics) Associated symptoms: Reports chills, fever(s) and nasal congestion; Deny chest pain, diarrhea, ear or mastoid pain, headache(s), nausea, sinus pain or vomiting Treatments prior to arrival: acetaminophen and ibuprofen Related Data Previous Rx's ?Medication ?Instructions ?Recorded hydroxyzine HCl 50 mg tablet See Rx Instructions .Rout e 03/28/23 .COMPLEX #60 tabs cetirizine 10 mg tablet 10 mg PO DAILY PRN allergy 0 08/21/23 symptoms #90 tabs fluticasone propionate 50 1 spray intranasal BID PRN n gamaliel 08/21/23 mcg/actuation nasal congestion #16 grams spray,suspension lorazepam 0.5 mg tablet 0.5 mg PO DAILY PRN anxiety #30 09/03/23 tabs fluoxetine 10 mg capsule 10 mg PO DAILY #30 caps 03/11 10/02 mupirocin 2 % topical ointment 1 applic topical BID #1 5 grams 03/26/24 lisinopril 20 mg tablet See Rx Instructions .Route 1 .COMPLEX #90 tabs gabapentin 600 mg tablet See Rx Instructions .Route 1 07/29/23 .COMPLEX #180 tabs cyclobenzaprine 10 mg tablet 10 mg PO TID PRN muscle s pasm #60 05/29/24 tabs diclofenac sodium 1 % topical gel 4 g topical QID #100 grams 05/29/24 (Aleve (diclofenac)) ibuprofen 800 mg tablet 800 mg PO TID PRN pain #90 t abs 07/10/24 prednisone 20 mg tablet 20 mg PO DAILY 5 days #5 tab s 07/10/24 Allergies Allergy/AdvReac Type Severity Reaction Status Date / Time pentazocine (From Evette) Allergy ADR-Halluci Verified 07/16/24 11:59 nating debby Allergy ALGY-Difficulty Verified 07/16/24 11:59 Breathing Review of Systems 2 Const: Reports: fever(s), chills, body aches and fatigue Eyes: Denies: change in vision, blurry vision or photophobia ENMT: Reports: nasal congestion; Denies: throat pain, odynophagia, ear or mastoid pain, nasal discharge or sinus pain Card: Denies: chest pain Resp: Reports: non-productive cough and chest congestion GI: Denies: nausea, vomiting or diarrhea Musc: Denies: neck pain Neuro: Denies: headache(s) PFSH ED 2 PFSH: Medical History Congestion of nasal sinus Allergic rhinitis due to allergen Post-traumatic stress disorder, chronic Social History Smoking and tobacco/nicotine status: current every day tobacco/nicotine user Second hand smoke exposure: Yes Alcohol intake: never Substance/Drug Use: never Adopted: No Caregiver/support person: No Lives independently: Yes Household members: spouse Housing: House Marital status: Number of children: 1 Number of grandchildren: 7 Highest education level completed: Master's Degree service: No Current occupational status: retired Current occupational exposures/hazards: No Pets and animals: Yes Do you think of yourself as: Straight/Heterosexual Current gender identity: Female Special angi needs: No Agree to transfusion: Yes Physical Exam 2 Const: COMMON NORMALS: no acute distress, average body habitus, patient oriented x3, no limitations, healthy appearing, alert and well nourished HENMT: COMMON NORMALS: Normal external nose present FACE & SINUS: normal facial exam NOSE: Normal external nose present THROAT: posterior oropharynx normal Eye: GENERAL EYE: appearance normal, both eyes and all related structures Neck/C-Spine: COMMON NORMALS: no lymphadenopathy Chest: COMMONS NORMALS: normal inspection of the chest Resp: COMMON NORMALS: normal respiratory effort and clear to auscultation bilaterally AUSCULTATION: clear to auscultation bilaterally Cardio: COMMON NORMALS: regular rate and regular rhythm RATE: regular rate RHYTHM: regular rhythm Neuro: COMMON NORMALS: patient oriented x3 SENSORIUM/ORIENTATION: Yes alert Course 2 Vital Signs: Vital signs: Vital Signs Temperature 97.9 F 07/16/24 11:49 Pulse Rate 96 07/16/24 14:11 Blood Pressure 130/73 07/16/24 14:11 Pulse Oximetry 99 07/16/24 14:11 Oxygen Delivery Me thod Room Air 07/16/24 11:49 MDM - URI/Sore Throat Medical Decision Making Patient here for flu like symptoms. She is positive for influenza A. She is outside the window for Tamiflu. Conservative therapies discussed. Medical Records I reviewed the patient's medical records. Lab Data I reviewed the patient's lab results. 07/16/24 12:07 07/16/24 12:07 Radiology Impressions Chest X-Ray 07/16/24 11:48 Impression: Hyperinflation and atherosclerosis. Laboratory Results WBC 5.81 10^3/uL (3.29-11.43) 07/16/24 12:07 RBC 4.59 10^6/uL (3.85-5.65) 07/16/24 12:07 Hgb 13.90 g/dL (11.27-16.99) 07/16/24 12:07 Hct 42.6 % (36-47) 07/16/24 12:07 MCV 92.8 fl (85-98) 07/16/24 12:07 MCH 30.3 pg (27-33) 07/16/24 12:07 MCHC 32.6 g/dL (30-55) 07/16/24 12:07 RDW 13.2 % (12.1-15.1) 07/16/24 12:07 Plt Count 199 10^3/cmm (157-399) 07/16/24 12:07 MPV 9.3 fL (7.4-10.4) 07/16/24 12:07 Neut % (Auto) 70.0 % 07/16/24 12:07 Lymph % (Auto) 20.5 % 07/16/24 12:07 Nash % (Auto) 8.4 % 07/16/24 12:07 Eos % (Auto) 0.5 % 07/16/24 12:07 Baso % (Auto) 0.3 % 07/16/24 12:07 Neut # (Auto) 4.06 10^3/uL (1.8-7.7) 07/16/24 12:07 Lymph # (Auto) 1.2 10^3/uL (0.8-4.8) 07/16/24 12:07 Nash # (Auto) 0.5 10^3/uL (0.2-0.9) 07/16/24 12:07 Eos # (Auto) 0.0 10^3/uL (0.0-0.8) 07/16/24 12:07 Baso # (Auto) 0.0 10^3/uL (0.0-0.1) 07/16/24 12:07 Nucleated RBC % (auto) 0 % 07/16/24 12:07 Nucleated RBCs # 0.0 /100WBC 07/16/24 12:07 Sodium 139 mmol/L (136-145) 07/16/24 12:07 Potassium 3.9 mmol/L (3.5-5.1) 07/16/24 12:07 Chloride 101 mmol/L (98-107) 07/16/24 12:07 Carbon Dioxide 24 mmol/L (22-29) 07/16/24 12:07 Anion Gap 17.9 (5-19) 07/16/24 12:07 BUN 9 mg/dL (8-23) 07/16/24 12:07 Creatinine 0.7 mg/dL (0.5-0.9) 07/16/24 12:07 GFR Calculation Not Reportable 07/16/24 12:07 Glucose 122 mg/dL (65-115) H 07/16/24 12:07 Calculated Osmolality 288 mOsm/kg (285-295) 07/16/24 12:07 Calcium 9.1 mg/dL (8.5-10.5) 07/16/24 12:07 Total Bilirubin 0.2 mg/dL (0.15-1.2) 07/16/24 12:07 AST 20 U/L (0-32) 07/16/24 12:07 ALT 14 U/L (0-33) 07/16/24 12:07 Alkaline Phosphatase 55 U/L (35-105) 07/16/24 12:07 NT-Pro-B Natriuret Pep 123 pg/mL (0-125) 07/16/24 12:07 Total Protein 7.8 g/dL (6.6-8.7) 07/16/24 12:07 Albumin 4.6 g/dL (3.5-5.2) 07/16/24 12:07 Globulin 3.2 g/dL (1.3-4.6) 07/16/24 12:07 Coronavirus (PCR) Negative (Negative) 07/16/24 12:00 Influenza A (PCR) Positive (Negative) 07/16/24 12:00 Influenza Type B (PCR) Negative (Negative) 07/16/24 12:00 RSV (PCR) Negative (Negative) 07/16/24 12:00 All radiology interpretation(s) finalized by discharge Discharge Plan Discharge Patient Disposition: Home Clinical Impression: Influenza A Condition: Stable Prescriptions: No Action lorazepam 0.5 mg tablet 0.5 mg PO DAILY PRN (Reason: anxiety) Qty: 30 2RF fluoxetine 10 mg capsule 10 mg PO DAILY Qty: 30 1RF hydroxyzine HCl 50 mg tablet See Rx Instructions .ROUTE .COMPLEX Qty: 60 5RF Dose Instruction: TAKE ONE-HALF TO 1 TABLET BY MOUTH EVERY 8 HOURS NEEDED FOR ANXIETY Rx Instructions: TAKE ONE-HALF TO 1 TABLET BY MOUTH EVERY 8 HOURS NEEDED FOR ANXIETY cetirizine 10 mg tablet 10 mg PO DAILY PRN (Reason: allergy symptoms) Qty: 90 1RF fluticasone propionate 50 mcg/actuation spray,suspension 1 spray intranasal BID PRN (Reason: nasal congestion) Qty: 16 5RF Rx Instructions: administer into each nostril cyclobenzaprine 10 mg tablet 10 mg PO TID PRN (Reason: muscle spasm) Qty: 60 0RF diclofenac sodium [Aleve (diclofenac)] 1 % gel 4 g topical QID Qty: 100 0RF ibuprofen 800 mg tablet 800 mg PO TID PRN (Reason: pain) Qty: 90 2RF prednisone 20 mg tablet 20 mg PO DAILY 5 Days Qty: 5 0RF Rx Instructions: don't take motrin while taking this lisinopril 20 mg tablet See Rx Instructions .ROUTE .COMPLEX Qty: 90 3RF Dose Instruction: TAKE 1 TABLET BY MOUTH EVERY DAY Rx Instructions: TAKE 1 TABLET BY MOUTH EVERY DAY gabapentin 600 mg tablet See Rx Instructions .ROUTE .COMPLEX Qty: 180 0RF Dose Instruction: TAKE 1 & 1/2 TABLETS BY MOUTH FOUR TIMES DAILY Rx Instructions: TAKE 1 & 1/2 TABLETS BY MOUTH FOUR TIMES DAILY mupirocin 2 % ointment 1 applic topical BID Qty: 15 0RF Discharge Orders: Discharge ED (Routine); Ordered 07/16/24 Ordered By: Riddhi Villanueva Referrals: Juma Trujillo MD [Primary Care Provider] - Patient Instructions: Influenza (DC) Activity Restrictions/Additional Instructions: As we discussed, you are positive for influenza A. You are outside the window for Tamiflu. Symptoms at this time would be conservative consisting of medications such as Tylenol and Motrin to treat fevers and bodyaches. Lots of rest and fluids to maintain hydration. You may seek medical reevaluation for worsening symptoms, severe shortness of breath or difficulty breathing, or any other concerns you may have. I hope you begin to feel better soon. 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
[2024-07-16 14:11] VITALS: BP 130/73; PULSE 96; O2SAT 99
== END 2024-07-16 14:22 | disposition home or self-care (01) ==
PROVIDERS: Emergency Medicine; Emergency Provider Physician Assistant; PCP Family Medicine
DX: J10.1 Influenza due to other identified influenza virus with other respiratory manifestations (principal); Z11.52 Encounter for screening for COVID-19; Z72.0 Tobacco use
CPT/HCPCS: 36415; 71045; 80053; 83880; 85025; 87637; 93005; 99285

== ENCOUNTER 2024-10-26 13:29 | Emergency (ER) | payer MEDICARE, SELFPAY ==
[2024-10-26 13:36] VITALS: BP 142/93; PULSE 103; RESP 18; TEMP 36.6; O2SAT 100; BMI 19.4
--- NOTE | 2024-10-26 13:55 | ED_ITS ---
HPI - Dental/Oral General: Chief complaint: Dental/Oral Stated complaint: tooth pain Time Seen by Provider: 10/26/24 13:47 Source: patient Mode of arrival: ambulatory Limitations: no limitations History of Present Illness: 74-year-old female who states she has tijerina d left upper dental pain for roughly 3 weeks states she has been on multiple rounds of antibiotics from urgent care has not been able to have a dentist pulled her tooth yet. States she is continue to pain she had some slight diarrhea she denies any fever denies any trismus. Associated symptoms: Denies fever(s) Related Data Previous Rx's ?Medication ?Instructions ?Recorded fluticasone propionate 50 1 spray intranasal BID PRN n gamaliel 08/21/23 mcg/actuation nasal congestion #16 grams spray,suspension lorazepam 0.5 mg tablet 0.5 mg PO DAILY PRN anxiety #30 09/03/23 tabs ibuprofen 800 mg tablet 800 mg PO TID PRN pain #90 t abs 07/10/24 cetirizine 10 mg tablet 10 mg PO DAILY PRN allergy 0 09/18/24 symptoms #90 tabs gabapentin 600 mg tablet See Rx Instructions .Route 0 09/18/24 .COMPLEX #180 tabs hydroxyzine HCl 50 mg tablet See Rx Instructions .Rout e 09/18/24 .COMPLEX #60 tabs lisinopril 20 mg tablet See Rx Instructions .Route 0 09/18/24 .COMPLEX #90 tabs acetaminophen 300 mg-codeine 30 mg 1 tab PO Q6H PRN pa in 5 days #20 10/11/24 tablet tabs clindamycin HCl 150 mg capsule 450 mg (3 x 150 mg) PO TID 7 days 10/19/24 #63 caps hydrocodone 5 mg-acetaminophen 325 1 tab PO Q6H PRN pa in #14 tabs 10/26/24 mg tablet ondansetron 4 mg disintegrating 4 mg PO Q6H PRN nausea and 10/26/24 tablet vomiting #14 tabs Allergies Allergy/AdvReac Type Severity Reaction Status Date / Time pentazocine (From Evette) Allergy ADR-Halluci Verified 10/19/24 14:39 nating debby Allergy ALGY-Difficulty Verified 10/19/24 14:39 Breathing Review of Systems Const: Denies: fever(s), chills, body aches or change in appetite ENMT: Reports: dental pain; Denies: throat pain Card: Denies: chest pain Resp: Denies: dyspnea GI: Reports: diarrhea; Denies: abdominal pain, nausea or vomiting : Denies: dysuria Musc: Denies: neck pain or back pain Skin/Breast: Denies: rash Neuro: Denies: headache(s) [facility] ED PFSH: Medical History Congestion of nasal sinus Allergic rhinitis due to allergen Post-traumatic stress disorder, chronic Social History Smoking and tobacco/nicotine status: former use of tobacco/nicotine Second hand smoke exposure: Yes Alcohol intake: never Substance/Drug Use: never Adopted: No Caregiver/support person: No Lives independently: Yes Household members: spouse Housing: House Marital status: Number of children: 1 Number of grandchildren: 7 Highest education level completed: Master's Degree service: No Current occupational status: retired Current occupational exposures/hazards: No Pets and animals: Yes Do you think of yourself as: Straight/Heterosexual Current gender identity: Female Special angi needs: No Agree to transfusion: Yes Physical Exam Const: COMMON NORMALS: no acute distress, patient oriented x3 and healthy appearing HENMT: COMMON NORMALS: normocephalic and atraumatic HEAD & SCALP: normocephalic and atraumatic OTHER: Tenderness left upper molar no obvious abscess or trismus Eye: COMMON NORMALS: Equal, round and reactive pupils present and EOMs intact bilaterally PUPIL: Yes Equal, round and reactive pupils present Neck/C-Spine: COMMON NORMALS: full ROM and supple Chest: COMMONS NORMALS: normal inspection of the chest and normal palpation of entire chest wall Resp: COMMON NORMALS: normal respiratory effort Cardio: COMMON NORMALS: regular rate RATE: regular rate Extremity: COMMON NORMALS: normal to inspection and full ROM Neuro: COMMON NORMALS: patient oriented x3, moves all extremities and no focal motor deficits Psych: COMMON NORMALS: mental status grossly normal, Normal thought process present and cooperative THOUGHT PROCESS: Normal thought process present Skin: COMMON NORMALS: no rashes or lesions noted and no wounds GENERAL SKIN EXAM: no rashes or lesions noted Course Vital Signs: Vital signs: Vital Signs Temperature 97.8 F 10/26/24 13:36 Pulse Rate 103 H 10/26/24 13:36 Respiratory Rate 18 10/26/24 13:36 Blood Pressure 142/93 10/26/24 13:36 Pulse Oximetry 100 10/26/24 13:36 Oxygen Delivery Me thod Room Air 10/26/24 13:36 MDM - Dental/Oral Medical Decision Making Patient presents here with toothache no abscess or trismus noted she is continue clindamycin she is on currently she needs to follow-up with dentist. Medical Records I reviewed the patient's medical records. No radiology studies performed this visit Discharge Plan Discharge Patient Disposition: Home Clinical Impression: Toothache Condition: Stable Prescriptions: New hydrocodone-acetaminophen 5-325 mg tablet 1 tab PO Q6H PRN (Reason: pain) Qty: 14 0RF ondansetron 4 mg tablet,disintegrating 4 mg PO Q6H PRN (Reason: nausea and vomiting) Qty: 14 0RF No Action lorazepam 0.5 mg tablet 0.5 mg PO DAILY PRN (Reason: anxiety) Qty: 30 2RF acetaminophen-codeine 300-30 mg tablet 1 tab PO Q6H PRN (Reason: pain) 5 Days Qty: 20 0RF fluticasone propionate 50 mcg/actuation spray,suspension 1 spray intranasal BID PRN (Reason: nasal congestion) Qty: 16 5RF Rx Instructions: administer into each nostril ibuprofen 800 mg tablet 800 mg PO TID PRN (Reason: pain) Qty: 90 2RF cetirizine 10 mg tablet 10 mg PO DAILY PRN (Reason: allergy symptoms) Qty: 90 1RF gabapentin 600 mg tablet See Rx Instructions .ROUTE .COMPLEX Qty: 180 5RF Dose Instruction: TAKE 1 & 1/2 TABLETS BY MOUTH FOUR TIMES DAILY Rx Instructions: TAKE 1 & 1/2 TABLETS BY MOUTH FOUR TIMES DAILY hydroxyzine HCl 50 mg tablet See Rx Instructions .ROUTE .COMPLEX Qty: 60 5RF Dose Instruction: TAKE ONE-HALF TO 1 TABLET BY MOUTH EVERY 8 HOURS NEEDED FOR ANXIETY Rx Instructions: TAKE ONE-HALF TO 1 TABLET BY MOUTH EVERY 8 HOURS NEEDED FOR ANXIETY lisinopril 20 mg tablet See Rx Instructions .ROUTE .COMPLEX Qty: 90 3RF Dose Instruction: TAKE 1 TABLET BY MOUTH EVERY DAY Rx Instructions: TAKE 1 TABLET BY MOUTH EVERY DAY clindamycin HCl 150 mg capsule 450 mg PO TID 7 Days Qty: 63 0RF Discharge Orders: Discharge ED (Routine); Ordered 10/26/24 Ordered By: Daphne Wilson Referrals: Buddy Sharpe DO [Primary Care Provider, [facility]] Discharge Diet: Advance as tolerated Discharge Activity: Resume usual activity Patient Instructions: Toothache (ED) Print Language: Occitan Coding Level of Care Code ED Sling Operator for Anais Bonilla
[2024-10-26] MEDS: ondansetron hcl ODT 4 mg Tab PO (14:08)
[2024-10-26] MEDS: HYDROcodone-acetaminophen 5-325 mg Tablet 1 TAB PO (14:08)
[2024-10-26 14:13] VITALS: RESP 16
== END 2024-10-26 14:14 | disposition home or self-care (01) ==
PROVIDERS: Emergency Provider Emergency Medicine; PCP Family Medicine
DX: K08.89 Other specified disorders of teeth and supporting structures (principal); Z87.891 Personal history of nicotine dependence
CPT/HCPCS: 99283; J9999; Q0162

== ENCOUNTER → 2024-11-19 13:29 | Outpatient (BNVA) | payer MEDICARE, SELFPAY | PROVIDERS: PCP Family Medicine; Visit Provider Nurse Practitioner | DX: B37.31 Acute candidiasis of vulva and vagina (principal) | CPT/HCPCS: 81000; 87086 ==

== ENCOUNTER 2025-03-30 11:42 | Emergency (ER) | payer MEDICARE, SELFPAY ==
--- OUTSIDE RECORDS SUMMARY | 2024-04-05 04:00 | XMS_ITS ---
Author Organization [facility] Address [address] [place] [address] Care Team Providers Care Chemical Tester Name Role Phone Agueda Issa MD Primary Care Provider Unavailabl e Migration, Provider Unavailable Unavailable REASON FOR VISIT EMR-Jimmy Encounters Encounter Location Date Provider Diagnosis Migrated_Facility 0 0 04/05/2024 Provider Migration Plan Of Treatment Medication Medication Name Sig Start Date Stop Date Notes oxycodone Oral Tab 15 mg 1 Tablet Every 6 Hours PRN for 30 Days 10/04/2011 11/03/2011 *Reorder from [facility] an for eRx and Interaction Alerts* MS Contin Oral TbER 30 mg 1 Tablet Three times a Day for 30 Days 10/04/2011 11/03/2011 *Reorder from [facility] an for eRx and Interaction Alerts* gabapentin Oral Tab 600 mg 1 Capsule Three times a Day for 30 Days 10/04/2011 11/03/2011 *Reorder from [facility] an for eRx and Interaction Alerts* Progress Notes * Perico LOPEZ AnnDOB: (74 yo F)Acc No.[id number]:04/05/2024 Patient: Perico PARRISH :1950 A ge:73 Y S ex:Female Address: [address], [place], [address] * Refills Stop gabapentin Oral Tab 600 mg, 1 Capsule Three times a Day for 30 Days Stop MS Contin Oral TbER 30 mg, 1 Tablet Three times a Day for 30 Days Stop oxycodone Oral Tab 15 mg, 1 Tablet Every 6 Hours PRN for 30 Days Subjective: * Chief Complaints: * E MR-Jimmy * * Date:
--- OUTSIDE RECORDS SUMMARY | 2024-04-06 04:00 | XMS_ITS ---
Author Organization [facility] Address [address] [place] [address] Care Team Providers Care Seo Professional Name Role Phone Luis Manuel ARREGUIN, Agueda Primary Care Provider Unavailabl e Migration, Provider Unavailable Unavailable Allergies Allergen (clinical drug ingredient) Drug/Non Drug Allergy documented on EMR Reaction Allergy Type Onset Date Status Talwin Unknown Drug Allergy Active REASON FOR VISIT EMR-Jimmy Medications Medication SIG (Take, Route, Frequency, Duration) Notes Start Date End Date Status PROzac *Pick strength-f orm from [facility]pan for eRX* Active KlonoPIN *Pick strength-f orm from [facility] for eRX* Active Neurontin *Pick strength-f orm from [facility] for eRX* Active Social History Social History Additional Details Category Social Info Options Details Migrated Social History Migrated Social History Alcoholic beverages? - No, Currently on disability? - Yes, exposure to toxins/poisonous substances at work - No, Marital Status - , Smoking - No, Working currently? - No Encounters Encounter Location Date Provider Diagnosis Migrated_Facility 0 0 04/06/2024 Provider Migration Plan Of Treatment No Information Progress Notes * Perico LOPEZ AnnDOB: (74 yo F)Acc No.[id number]:04/06/2024 Patient: Perico PARRISH :1950 A ge:73 Y S ex:Female Address: [address], [place], [address] Subjective: * Chief Complaints: * E MR-Jimmy * Surgical History: Exploratory laparotomy Laminectomy Rib Resection scailinectomy Shoulder surgery * Social History: M igrated Social History: M igrated Social History: Alcoholic beverages? - No, C urrently on disability? - Yes, e xposure to toxins/poisonous substances at work - No, M arital Status - , S moking - No, W orking currently? - No. * Medications: T akingKlonoPIN , Notes to Pharmacist: *Pick strength-form from Medispan for eRX*Neurontin , Notes to Pharmacist: *Pick strength-form from Medispan for eRX*PROzac , Notes to Pharmacist: *Pick strength-form from Medispan for eRX*Taking KlonoPIN , Notes to Pharmacist: *Pick strength-form from Medispan for eRX*Taking Neurontin , Notes to Pharmacist: *Pick strength-form from Medispan for eRX*Taking PROzac , Notes to Pharmacist: *Pick strength-form from Medispan for eRX* * Allergies: Ricky manzo: Allergy * * Date:
[2025-03-30 11:43] VITALS: BP 158/97; PULSE 99; RESP 16; TEMP 36.7; O2SAT 99; BMI 19.5
--- OUTSIDE RECORDS SUMMARY | 2025-03-30 12:26 | XMS_ITS | Patient Health Record ---
Author Organization [facility] Address [address] [place] [address] Care Team Providers Care Poker Machine Attendant Name Role Phone Luis Manuel ARREGUIN, Agueda Primary Care Provider Unavailabl e Migration, Provider Unavailable Unavailable Reason For Referral No Information Medications Medication SIG (Take, Route, Frequency, Duration) [...] Diagnosis Migrated_Facility 0 0 04/05/2024 Provider Migration Migrated_Facility 0 0 04/06/2024 Provider Migration Plan Of Treatment No Information Medical (General) History Surgical History Surgery Date(Month/Year) Exploratory laparotomy Laminectomy Rib Resection scailinectomy Shoulder surgery
--- NOTE | 2025-03-30 12:38 | XRR_ITS ---
PROCEDURE INFORMATION: Exam: XR Left Elbow Exam date and time: 03/30/2025 12:49 PM Age: 74 years old Clinical indication: Pain; Swelling; Elbow; Left; Additional info: Pain and swelling TECHNIQUE: Imaging protocol: Radiologic exam of the left elbow. Views: 3 or more views. COMPARISON: No relevant prior studies available. FINDINGS: Bones/joints: No acute fracture or dislocation. Joint spaces are preserved. Soft tissues: Normal. XR/XR elbow LT min 3V* [id number] IMPRESSION: No acute fracture or dislocation.
--- NOTE | 2025-03-30 18:23 | ED_ITS ---
HPI - Extremity Problem General: Chief complaint: Extremity Injury, Upper Stated complaint: L elbow pain Time Seen by Provider: 03/30/25 14:32 Source: patient Mode of arrival: ambulatory Limitations: no limitations History of Present Illness: Patient is a 74-year-old female who presents emerged primary complaining of left elbow pain for 3 weeks. States that she fell and this was the initial injury, she went to urgent care was told she has tendinitis and was giving a brace. States that has been making her symptoms worse, she arrives in a sling and she states is the only thing that makes it feel better. Has full range of motion, states it is primarily just the pain. Denies history of arthritis or previous fractures or breaks. Pain is nonradiating and primarily just to the left lateral elbow. MD Complaint: joint pain Onset (ago): week(s) (3) Location: left and elbow Associated symptoms: Deny chest pain, fever(s) or rash Related Data Previous Rx's ?Medication ?Instructions ?Recorded fluticasone propionate 50 1 spray intranasal BID PRN n gamaliel 08/21/23 mcg/actuation nasal congestion #16 grams spray,suspension cetirizine 10 mg tablet 10 mg PO DAILY PRN allergy 0 09/18/24 symptoms #90 tabs gabapentin 600 mg tablet See Rx Instructions .Route 0 09/18/24 .COMPLEX #180 tabs hydroxyzine HCl 50 mg tablet See Rx Instructions .Rout e 09/18/24 .COMPLEX #60 tabs lisinopril 20 mg tablet See Rx Instructions .Route 0 09/18/24 .COMPLEX #90 tabs cyclobenzaprine 10 mg tablet 10 mg PO TID PRN muscle s pasm #60 11/18/24 tabs clotrimazole 1 % topical cream 1 applic topical BID #3 0 grams 11/19/24 ibuprofen 800 mg tablet (IBU) 800 mg PO Q8H PRN pain # 30 tabs 12/08/24 hydrocodone 5 mg-acetaminophen 325 1 tab PO Q8H PRN pa in 30 days #10 01/07/25 mg tablet tabs lorazepam 0.5 mg tablet 0.5 mg PO DAILY PRN anxiety #30 03/25/25 tabs Allergies Allergy/AdvReac Type Severity Reaction Status Date / Time pentazocine (From Evette) Allergy ADR-Halluci Verified 03/18/25 10:22 jade guardado Allergy ALGY-Difficulty Verified 03/18/25 10:22 Breathing Review of Systems General: Reports: 10 or more systems reviewed and unremarkable except in HPI and below Const: Denies: fever(s) or chills Card: Denies: chest pain Resp: Denies: dyspnea or productive cough GI: Denies: abdominal pain, nausea, vomiting or diarrhea : Denies: flank pain Musc: Reports: joint pain (left elbow); Denies: neck pain, back pain, extremity pain, extremity swelling, joint swelling, joint redness, joint warmth, limited range of motion or muscle weakness Skin/Breast: Denies: rash Neuro: Denies: headache(s), numbness in extremities or weakness in extremities PFSH ED PFSH: Medical History Congestion of nasal sinus Allergic rhinitis due to allergen Post-traumatic stress disorder, chronic Social History Smoking and tobacco/nicotine status: former use of tobacco/nicotine (2 months quit) Second hand smoke exposure: Yes Alcohol intake: never Substance/Drug Use: never Adopted: No Caregiver/support person: No Lives independently: Yes Household members: spouse Housing: House Marital status: Number of children: 1 Number of grandchildren: 7 Highest education level completed: Master's Degree service: No Current occupational status: retired Current occupational exposures/hazards: No Pets and animals: Yes Do you think of yourself as: Straight/Heterosexual Current gender identity: Female Special angi needs: No Agree to transfusion: Yes Physical Exam Const: COMMON NORMALS: no acute distress, patient oriented x3, no limitations, healthy appearing, alert and well nourished HENMT: COMMON NORMALS: normocephalic and atraumatic HEAD & SCALP: normocephalic and atraumatic Neck/C-Spine: COMMON NORMALS: full ROM, supple and no meningeal signs Extremity: COMMON NORMALS: full ROM, capillary refill normal, no joint enlargement and no clubbing, cyanosis or edema NARRATIVE EXTREMITY EXAM: There is mild tender to palpation left lateral elbow with no signs of deformity. No elbow swelling. No overlying skin changes. Full range of motion of the elbow. Distal neurovascular exam is intact. Negative varus/valgus stress testing. Neuro: COMMON NORMALS: patient oriented x3, moves all extremities, no focal motor deficits and no sensory deficits noted SENSORIUM/ORIENTATION: Yes alert MENINGEAL SIGNS: Yes no meningeal signs Skin: COMMON NORMALS: no rashes or lesions noted GENERAL SKIN EXAM: no rashes or lesions noted Course Vital Signs: Vital signs: Vital Signs Temperature 98.0 F 03/30/25 11:43 Pulse Rate 99 03/30/25 11:43 Respiratory Rate 16 03/30/25 11:43 Blood Pressure 158/97 03/30/25 11:43 Pulse Oximetry 99 03/30/25 11:43 Oxygen Delivery Me thod Room Air 03/30/25 11:43 MDM - Extremity (Nontraumatic) Medical Decision Making There is no acute injury by x-ray today, the injury occurred 3 weeks ago where she fell. Has been wearing a brace as she is diagnosed with tendinitis, states that this did not help. Suspect deep contusion versus other benign etiology, there is no further workup necessary in the ED at this time. Will be allowed discharge home. Lab Data Radiology Impressions Elbow X-Ray 03/30/25 12:38 IMPRESSION: No acute fracture or dislocation. All radiology interpretation(s) finalized by discharge Discharge Plan Discharge Patient Disposition: Home Clinical Impression: Contusion of elbow, left Condition: Stable Prescriptions: No Action ibuprofen [IBU] 800 mg tablet 800 mg PO Q8H PRN (Reason: pain) Qty: 30 0RF hydrocodone-acetaminophen 5-325 mg tablet 1 tab PO Q8H PRN (Reason: pain) 30 Days Qty: 10 0RF Rx Instructions: May take one tab daily as needed for pain. fluticasone propionate 50 mcg/actuation spray,suspension 1 spray intranasal BID PRN (Reason: nasal congestion) Qty: 16 5RF Rx Instructions: administer into each nostril cetirizine 10 mg tablet 10 mg PO DAILY PRN (Reason: allergy symptoms) Qty: 90 1RF gabapentin 600 mg tablet See Rx Instructions .ROUTE .COMPLEX Qty: 180 5RF Dose Instruction: TAKE 1 & 1/2 TABLETS BY MOUTH FOUR TIMES DAILY Rx Instructions: TAKE 1 & 1/2 TABLETS BY MOUTH FOUR TIMES DAILY hydroxyzine HCl 50 mg tablet See Rx Instructions .ROUTE .COMPLEX Qty: 60 5RF Dose Instruction: TAKE ONE-HALF TO 1 TABLET BY MOUTH EVERY 8 HOURS NEEDED FOR ANXIETY Rx Instructions: TAKE ONE-HALF TO 1 TABLET BY MOUTH EVERY 8 HOURS NEEDED FOR ANXIETY lisinopril 20 mg tablet See Rx Instructions .ROUTE .COMPLEX Qty: 90 3RF Dose Instruction: TAKE 1 TABLET BY MOUTH EVERY DAY Rx Instructions: TAKE 1 TABLET BY MOUTH EVERY DAY clotrimazole 1 % cream 1 applic topical BID Qty: 30 0RF cyclobenzaprine 10 mg tablet 10 mg PO TID PRN (Reason: muscle spasm) Qty: 60 5RF lorazepam 0.5 mg tablet 0.5 mg PO DAILY PRN (Reason: anxiety) Qty: 30 2RF Discharge Orders: Discharge ED (Routine); Ordered 03/30/25 Ordered By: Gabriel Muniz Referrals: Buddy Sharpe DO [Primary Care Provider, [facility]] Patient Instructions: Patient Portal & Nancy Instructions Activity Restrictions/Additional Instructions: Elbow Contusion Discharge You have a bruise (contusion) of your left elbow after a fall. X-rays today show no broken bones. Here are your instructions for care at home: - Pain Control: You may use acetaminophen (Tylenol) or a nonsteroidal anti- inflammatory drug (NSAID) like ibuprofen for pain, as needed. Take these as directed on the package. Avoid opioids unless pain is severe and not controlled by other medications. - Bandage: Keep your elbow wrapped with the elastic (Hilario) bandage as instructed. This helps with swelling and support. Do not wrap too tightly; if you notice numbness, tingling, or increased pain, loosen the bandage. - Activity: Try to gently move your elbow several times a day to prevent stiffness. Avoid heavy lifting or activities that cause pain, but do not keep your arm completely still. Early gentle movement helps recovery. - Ice and Elevation: You may apply ice packs (wrapped in a towel) to your elbow for 15-20 minutes every few hours for the first couple of days. Elevate your arm when possible to reduce swelling. - Watch for Problems: Call your primary care provider or return to the clinic if: - Pain worsens or does not improve after a few days - You notice new swelling, redness, warmth, or fever - You cannot move your elbow or arm as usual - Numbness or tingling develops in your hand or fingers - Follow-Up: If your symptoms do not improve or get worse over the next week, schedule a follow-up appointment with your primary care provider. Sometimes repeat imaging or further evaluation is needed if pain persists. Most elbow bruises heal with time and gentle care. If you have any questions or concerns, please contact your healthcare provider. Print Language: Turkmen Coding Level of Care Code ED Legal Contracts Specialist for Anais Bonilla
== END 2025-03-30 15:01 | disposition home or self-care (01) ==
PROVIDERS: Emergency Provider Physician Assistant; PCP Family Medicine
DX: S50.02XA Contusion of left elbow, initial encounter (principal); Z87.891 Personal history of nicotine dependence; W19.XXXA Unspecified fall, initial encounter
CPT/HCPCS: 73080; 99283